=== PATIENT | male | born 1960 | race Two or more races ===

== ENCOUNTER 2019-02-18 21:27 | Inpatient (IN) | payer OTHER ==
[~2019-02-18] VITALS: Ht 193 cm; Wt 160.1 kg
--- NOTE | 2019-02-18 21:40 | NUR ---
PT JAVI FROM [facility] C/O COUGH AND CONGESTION 3 WEEKS WORSENING TODAY, 02 SAT RA ON 84%. PLACED ON 4L NC SATTING 90%. PT ON MONITOR IN BED 1. WILL CONTINUE TO MONITOR.
--- NOTE | 2019-02-18 22:16 | NUR ---
IV INITIATED RAC 18G. LABS DRAWN FROM SITE. DOOR CLAMP OPERATOR AT BEDSIDE FOR COLLECTION. IV INTACT AND PATENT, PLACED ON SALINE LOCK
[2019-02-18 22:20] LABS: BASOPHILS % (AUTO) 0.4 % (0.0-2.0); EOSINOPHILS % (AUTO) 1.1 % (0.0-6.0); HEMATOCRIT 48 % (39-51); HEMOGLOBIN 15.7 g/dL (13.5-17.5); LYMPHOCYTES # (AUTO) 1.4 /CMM (0.8-4.8); LYMPHOCYTES % (AUTO) 11.5 % (20.0-44.0); MEAN CORPUSCULAR HGB CONC 33 g/dl (31.0-36.0); MEAN CORPUSCULAR VOLUME 90 fL (80-96); MONOCYTES # (AUTO) 1.1 /CMM (0.1-1.30); MONOCYTES % (AUTO) 8.9 % (2.0-12.0); NEUTROPHILS # (AUTO) 9.5 /CMM (1.8-8.9); NEUTROPHILS % (AUTO) 78.1 % (43.0-81.0); PLATELET COUNT (AUTO) 207 /CMM (150-450); RED BLOOD CELL COUNT(AUTO) 5.26 MIL/uL (4.5-6.0); WHITE BLOOD COUNT (AUTO) 12.2 K/uL (4.3-11.0)
[2019-02-18 22:28] LABS: CALCIUM, SERUM 8.3 mg/dL (8.5-10.1); CARBON DIOXIDE 36 mmol/L (21-32); CHLORIDE 104 mmol/L (98-107); CREATININE 0.8 mg/dL (0.6-1.3); GLUCOSE 128 mg/dL (74-106); POTASSIUM 4.5 mmol/L (3.5-5.1); SODIUM SERUM 141 mmol/L (136-145); UREA NITROGEN, BLOOD 22 mg/dL (7-18)
[2019-02-18] MEDS ORDERED: methylPREDNISolone SOD SUCC 125 MG/2ML VIAL IV ONE (22:30)
[2019-02-18] MEDS ORDERED: IV NS 0.9% 1,000 ML BAG IV ONE (22:30)
[2019-02-18] MEDS ORDERED: methylPREDNISolone SOD SUCC 125 MG/2ML VIAL ONE (22:32)
[2019-02-18 22:41] LABS: ALANINE AMINOTRANSFERASE 27 U/L (12-78); ALBUMIN 3.1 g/dL (3.4-5.0); ALKALINE PHOSPHATASE 145 U/L (46-116); ASPARTATE AMINOTRANSFERASE 13 U/L (15-37); B-TYPE NATRIURETIC PEPTIDE 2299 PG/ML (0-125); BILIRUBIN,DIRECT 0.2 mg/dL (0.0-0.2); BILIRUBIN,TOTAL 0.6 mg/dL (0.2-1.0); TOTAL PROTEIN, SERUM 6.8 g/dL (6.4-8.2)
--- NOTE | 2019-02-18 23:19 | NUR ---
PAGED EUN ECHEVARRIA
--- NOTE | 2019-02-19 00:05 | NUR ---
URINE COLLECTED AND SENT TO LAB
--- NOTE | 2019-02-19 00:11 | NUR ---
GAVE REPORT TO DOMINGA ESPINOZA FOR NATALIE
[2019-02-19 00:25] LABS: APPEARANCE,URINE Clear (CLEAR); BILIRUBIN,URINE Negative (NEGATIVE); BLOOD, URINE Trace-intact Ery/uL (NEGATIVE); COLOR,URINE Yellow (YELLOW); KETONES,URINE Negative (NEGATIVE); LEUKOCYTE ESTERASE ,URINE Negative (NEGATIVE); NITRITE, URINE Negative (NEGATIVE); PH,URINE 5.5 (5.0-8.0); PROTEIN,URINE 30 mg/dl (NEGATIVE); UGLUCOSE Negative (NEGATIVE)
[2019-02-19 00:50] LABS: BACTERIA,URINE None seen /HPF (None Seen); RBC,URINE 0-2 /HPF (0-2); SQUAMOUS EPITHELIAL CELL,UR Few /HPF (None Seen); WBC,URINE 0-2 /HPF (0-3)
[2019-02-19] MEDS ORDERED: ZOLPIDEM TARTRATE 5 MG TABLET PO PRN (01:00)
[2019-02-19] MEDS ORDERED: HYDROCODONE/APAP 5/325MG 1 EACH TABLET PO PRN (01:00)
[2019-02-19] MEDS ORDERED: MAGNESIUM HYDROXIDE 30 ML UDC PO PRN (01:00)
[2019-02-19] MEDS ORDERED: ALBUTEROL FS 2.5 MG/3 ML VIAL.NEB NEB PRN (01:00)
[2019-02-19] MEDS ORDERED: ONDANSETRON HCL/PF 4 MG/2 ML VIAL IVP PRN (01:00)
[2019-02-19] MEDS ORDERED: MAG HYDROX/AL HYDROX/SIMETH 30 ML UDC PO PRN (01:00)
[2019-02-19] MEDS ORDERED: Z GUARD REMEDY 2 OZ OINT TP PRN (01:00)
[2019-02-19] MEDS ORDERED: IPRATROPIUM NEB FS 0.5 MG/2.5 ML AMPUL.NEB NEB PRN (01:00)
[2019-02-19 01:45] VITALS: BP 160/87
--- NOTE | 2019-02-19 01:50 | NUR ---
TRANSFERRED PT PER ACLS PROTOCOL
--- NOTE | 2019-02-19 02:00 | NUR ---
TELE/RN OPENING NOTES PT RECEIVED FROM ER VIASMITHA. A/OX3. PLACED ON 2L OW VIA NC, SOB ON EXERTION. PLACED ON TELE MONITOR SHOWING A.FIB 116. IV TO RAC PATENT AND INTACT. PT REFUSED TO COMPLETE BELONGINGS LIST ON UNIT, STATED THAT "ER ALREADY DID IT". INFORMED PT THAT WE WANT HIS BELONGINGS ACCOUNTED FOR FROM ER TO MICHEL AND PT STILL REFUSED. ORIENTED PT TO ROOM AND CALL LIGHT. HOB ELEVATED. BILATERAL UPPER SIDE RAILS IN PLACE. SKIN ASSESSMENT DONE, PHOTOS PLACED IN THE CHART. NO NEEDS EXPRESSED AT THIS TIME. WILL CONTINUE TO MONITOR
[2019-02-19] MEDS ORDERED: MORP30TA59 PO (02:15)
[2019-02-19] MEDS ORDERED: DILT180C66 PO (02:15)
[2019-02-19] MEDS ORDERED: NAPR-1009 PO (02:15)
[2019-02-19] MEDS ORDERED: APIX5TAB PO (02:15)
--- NOTE | 2019-02-19 02:26 | NUR ---
TELE/RN NOTES PAGED TALIA NIETO. PT REQUESTING MS CONTIN 15MG FOR BACK PAIN DUE TO MULTIPLE BACK INJURIES AND ARTHRITIC HIP PAIN. WILL INPUT ORDERS.
[2019-02-19] MEDS ORDERED: MORPHINE SULFATE INJ 2 MG/ML DISP.SYRIN IV PRN (02:30)
--- NOTE | 2019-02-19 02:41 | NUR ---
PATIENT FOUND ON ROOM AIR AND OFF CANNULA, OBTAINED LOW SaO2 READING. CURRENTLY GIVING PRN HHN TREATMENT PER PATIENT'S REQUEST. Addendum: 02/19/19 at 0243 by DANIEL FOSTER RT Amended: Links added.
--- NOTE | 2019-02-19 02:45 | NUR ---
RN NOTES PT DOES NOT WANT TO TAKE IV MORPHINE. INFORMED EMILIA SKIDDER RUNNER, STATES HE DOES NOT WANT TO ORDER MS CONTIN OR ANY ADDITIONAL PAIN MEDICATIONS
[2019-02-19 04:30] VITALS: BP 132/96
[2019-02-19 04:34] LABS: BASOPHILS % (AUTO) 0.2 % (0.0-2.0); EOSINOPHILS % (AUTO) 0.6 % (0.0-6.0); HEMATOCRIT 52 % (39-51); HEMOGLOBIN 16.9 g/dL (13.5-17.5); LYMPHOCYTES # (AUTO) 0.6 /CMM (0.8-4.8); LYMPHOCYTES % (AUTO) 4.4 % (20.0-44.0); MEAN CORPUSCULAR HGB CONC 33 g/dl (31.0-36.0); MEAN CORPUSCULAR VOLUME 91 fL (80-96); MONOCYTES # (AUTO) 0.1 /CMM (0.1-1.30); MONOCYTES % (AUTO) 0.6 % (2.0-12.0); NEUTROPHILS % (AUTO) 94.2 % (43.0-81.0); PLATELET COUNT (AUTO) 127 /CMM (150-450); RED BLOOD CELL COUNT(AUTO) 5.68 MIL/uL (4.5-6.0); WHITE BLOOD COUNT (AUTO) 13.8 K/uL (4.3-11.0)
[2019-02-19 04:47] LABS: CALCIUM, SERUM 8.5 mg/dL (8.5-10.1); CREATININE 0.8 mg/dL (0.6-1.3); MAGNESIUM 1.8 mg/dL (1.8-2.4); PHOSPHORUS 3.1 mg/dL (2.5-4.9); POTASSIUM 4.9 mmol/L (3.5-5.1)
[2019-02-19 05:16] LABS: THYROID STIMULATING HORMONE 0.007 uIU/mL (0.358-3.74)
--- NOTE | 2019-02-19 06:25 | NUR ---
TELE/RN CLOSING NOTES PT ASLEEP, RESPONSIVE TO NAME. ON 2L O2 VIA NC, BREATHING EVEN AND UNLABORED. NO SOB OR PAIN AT THIS TIME. HOB ELEVATED. IN NO ACUTE DISTRESS. IV TO RAC PATENT AND INTACT. NO SIGNIFICANT CHANGES OVERNIGHT. ALL NEEDS MET. ON TELE MONITOR SHOWING AFIB 110-120'S. CALLED [facility] FOR COMPLETE LIST OF HOME MEDS. PER STAFF, SHE DOESNT HAVE THE LIST OF MEDS, "PT KNOWS WHAT HE IS TAKING". BED REMAINS IN LOW/LOCKED POSITION WITH CALL LIGHT IN REACH. [address] REFUSED TO HAVE OTHER UPPER SIDE RAIL IN PLACE DESPITE EDUCATION OF SAFETY. INDEPENDENT MOBILITY IN BED. BLE ELEVATED. WILL ENDORSE TO DAY SHIFT RN NATALIE.
--- NOTE | 2019-02-19 07:00 | NUR ---
STAMPING BENCH DIE MAKER OPENING NOTES RECEIVED REPORT FROM SHIRT IRONER NURSE. PATIENT AWAKE, ALERT ON 2L O2 VIA NC, BREATHING EVEN AND UNLABORED. NO SOB OR PAIN AT THIS TIME. HOB ELEVATED. IN NO ACUTE DISTRESS. IV TO RAC PATENT AND INTACT. ON TELE MONITOR SHOWING AFIB 110-120'S. BED IN LOW/LOCKED POSITION WITH CALL LIGHT IN REACH. PATIENT REFUSED TO HAVE SIDE RAIL UP IN PLACE DESPITE EDUCATION OF SAFETY. INDEPENDENT MOBILITY IN BED. USES OLD BOTTLE OF PEANUT TO URINATE DESPITE URINAL AT BEDSIDE. BLE ELEVATED. WILL CONT TO MONITOR PT CLOSELY.
[2019-02-19 08:00] VITALS: BP 122/73
[2019-02-19] MEDS ORDERED: DILT-3 PO (08:03)
[2019-02-19] MEDS ORDERED: MORP15TA7 PO (08:03)
[2019-02-19] MEDS ORDERED: ALBU2.5V38 IH (08:03)
[2019-02-19] MEDS ORDERED: ALBU18HF2 IH (08:03)
[2019-02-19] MEDS ORDERED: FLUT1BLS IH (08:03)
[2019-02-19] MEDS ORDERED: ACET-2605 PO (08:03)
[2019-02-19] MEDS ORDERED: FLUTICASONE 220MCG 1 INHALER IH SCH (09:00)
[2019-02-19] MEDS ORDERED: NAPROXEN 500 MG TABLET PO PRN (10:00)
--- NOTE | 2019-02-19 10:00 | NUR ---
ZIPPER SETTER LOCKSTITCH NOTES PATIENT COMPLAINED ABOUT HIS CARDIAC (LOW FAT, LOW CHOL, 2GMNA) DIET. EDUCATED PATIENT ABOUT THE BENEFITS OF CARDIAC DIET (LOW FAT, LOW CHOL, 2GMNA) AND THE RISKS IF NOT FOLLOWED. PATIENT INSISTED DIET TO BE CHANGED DESPITE EDUCATION GIVEN. WILL LET HOSPITALIST KNOW.
[2019-02-19] MEDS: DILTIAZEM HCL CD 240 MG PO SCH (10:22)
[2019-02-19] MEDS: methylPREDNISolone SOD SUCC 40 MG/ML VIAL IV SCH ×3 (10:23→17:07)
[2019-02-19] MEDS: ALBUTEROL FS 2.5 MG/0.5 ML VIAL.NEB NEB SCH ×4 (10:46→23:04)
[2019-02-19] MEDS: IPRATROPIUM NEB FS 0.5 MG/2.5 ML AMPUL.NEB NEB SCH ×4 (10:46→23:04)
[2019-02-19] MEDS: APIXABAN 5 MG TABLET PO SCH ×2 (10:58→17:07)
--- NOTE | 2019-02-19 10:58 | NUR ---
RT NOTE: ALERT PATIENT REFUSES TO KEEP OXYGEN ON. PATIENT STATES THAT IT GIVES HIM A HEADACHE AND IS AWARE THAT LOW OXYGEN SATURATION LEVELS ARE DANGEROUS BUT REFUSES TO KEEP IT ON.
[2019-02-19 12:00] VITALS: BP 149/80
[2019-02-19] MEDS: LEVOFLOXACIN (500MG) 500 MG TABLET PO SCH (15:18)
[2019-02-19 16:00] VITALS: BP 130/78
--- NOTE | 2019-02-19 17:18 | NUR ---
OFFICE COPY SELECTOR NOTES PATIENT REQUESTING FOR 15MG PO MORPHINE INSTEAD OF 2MG IV MORPHINE. HOSPITALIST MADE AWARE. AWAITING FOR RESPONSE.
[2019-02-19] MEDS: MORPHINE SULFATE IR 15 MG TABLET PO PRN (18:22)
--- NOTE | 2019-02-19 19:00 | NUR ---
GEOLOGY TEACHER CLOSING NOTES PATIENT AWAKE, ALERT AND ORIENTED X3. ON ROOM AIR, NO SOB OR ACUTE DISTRESS NOTED. BREATHING EVEN AND UNLABORED. HOB ELEVATED AT ALL TIMES. IV TO RAC PATENT AND INTACT. ON TELE MONITOR SHOWING AFIB 110S. BED IN LOW/LOCKED POSITION WITH CALL LIGHT IN REACH. PATIENT REFUSED TO HAVE SIDE RAIL UP IN PLACE DESPITE EDUCATION OF SAFETY. INDEPENDENT MOBILITY IN BED. BLE ELEVATED. ALL MD ORDERS ATTENDED. ALL NEEDS MET. ENDORSED TO FITTING ROOM SUPERVISOR NURSE FOR NATALIE.
--- NOTE | 2019-02-19 19:11 | NUR ---
Met with patient, he is alert and oriented. States he resides at [facility] [phone]. He is confined to wheelchair that he use for mobility. He is independent with adl's and owns a commode, walker and wheelchair. He goes to the outpatient therapy at [facility] in [place] [phone]. His pcp is Dr. Marcos Bearden in [facility] [phone]. Patient states he will need 24-48hrs noticed for him to set up his transportation prior discharge. Addendum: 02/19/19 at 3 by VICTORINA RODRIGUEZ RN Amended: Links added.
--- NOTE | 2019-02-19 19:26 | NUR ---
RT NOTE AWAKE AND ALERT PATIENT REFUSES TO WEAR NASAL CANULA. PATIENT STATES THAT IT GIVES HIM A HEADACHE. INFORMED PT THAT LOW O2 SATURATION LEVELS ARE DANGEROUS BUT PT STILL REFUSES TO WEAR NC. RN MAYAFFERY NOTIFIED AND AWARE.
--- NOTE | 2019-02-19 20:08 | NUR ---
POTATO CHIP SORTER INITIAL NOTES RECEIVED PATIENT AWAKE, AOX2-3 ON R/A REFUSES TO WEAR NC REPORTED BY RT, BREATHING EVEN AND UNLABORED. NO SOB OR PAIN AT THIS TIME. HOB ELEVATED. IN NO ACUTE DISTRESS. IV TO RAC PATENT AND INTACT. ON TELE MONITOR SHOWING AFIB 113-120'S. BED IN LOW/LOCKED POSITION WITH CALL LIGHT IN REACH. PATIENT REFUSED TO HAVE SIDE RAIL UP IN PLACE DESPITE EDUCATION OF SAFETY. INDEPENDENT MOBILITY IN BED. USES OLD BOTTLE OF PEANUT TO URINATE DESPITE URINAL AT BEDSIDE. BLE ELEVATED. WILL CONT TO MONITOR PT CLOSELY.
[2019-02-19 20:24] VITALS: BP 132/87
[2019-02-20 00:19] VITALS: BP 140/78
[2019-02-20] MEDS: IPRATROPIUM NEB FS 0.5 MG/2.5 ML AMPUL.NEB NEB SCH ×6 (03:16→22:44)
[2019-02-20] MEDS: ALBUTEROL FS 2.5 MG/0.5 ML VIAL.NEB NEB SCH ×6 (03:16→22:44)
[2019-02-20 04:00] VITALS: BP 120/86
--- NOTE | 2019-02-20 06:30 | NUR ---
PATTERN LEASE INSPECTOR CLOSING NOTES ENDORSED PATIENT AWAKE, AOX2-3 ON R/A REFUSES TO WEAR NC REPORTED BY RT, BREATHING EVEN AND UNLABORED. NO SOB OR PAIN AT THIS TIME. HOB ELEVATED. IN NO ACUTE DISTRESS. IV TO RAC PATENT AND INTACT. ON TELE MONITOR SHOWING AFIB 113-120'S. BED IN LOW/LOCKED POSITION WITH CALL LIGHT IN REACH. PATIENT REFUSED TO HAVE SIDE RAIL UP IN PLACE DESPITE EDUCATION OF SAFETY. INDEPENDENT MOBILITY IN BED. USES OLD BOTTLE OF PEANUT TO URINATE DESPITE URINAL AT BEDSIDE. BLE ELEVATED. WILL CONT TO MONITOR PT CLOSELY.
--- NOTE | 2019-02-20 07:30 | NUR ---
RN OPENING NOTES RECEIVED REPORT FROM WOOD CARVER HAND RN.PATIENT AWAKE, AOX2-3 ON R/A REFUSES TO WEAR NC REPORTED BY RT, BREATHING EVEN AND UNLABORED. NO SOB OR PAIN AT THIS TIME. HOB ELEVATED. IN NO ACUTE DISTRESS. IV TO RAC PATENT AND INTACT. ON TELE MONITOR SHOWING AFIB 110-120'S. BED IS LOW/LOCKED POSITION WITH CALL LIGHT IN REACH. PATIENT REFUSED TO HAVE SIDE RAIL UP IN PLACE DESPITE EDUCATION OF SAFETY. INDEPENDENT MOBILITY IN BED. USES OLD BOTTLE OF PEANUT TO URINATE DESPITE URINAL AT BEDSIDE. BLE ELEVATED. WILL CONT TO MONITOR.
[2019-02-20 08:00] VITALS: BP 125/97
[2019-02-20] MEDS: APIXABAN 5 MG TABLET PO SCH ×2 (08:13→16:34)
[2019-02-20] MEDS: DILTIAZEM HCL CD 240 MG PO SCH (08:13)
[2019-02-20] MEDS: methylPREDNISolone SOD SUCC 40 MG/ML VIAL IV SCH ×3 (08:13→16:34)
[2019-02-20] MEDS: MORPHINE SULFATE IR 15 MG TABLET PO PRN (08:25)
[2019-02-20] MEDS: ACETAMINOPHEN 325 MG TABLET PO PRN (08:25)
[2019-02-20 12:00] VITALS: BP 125/76
[2019-02-20] MEDS: FLUTICASONE/VILANTEROL 1 EACH BLST.W.DEV IH SCH (12:44)
--- NOTE | 2019-02-20 12:57 | NUR ---
PT O2 SATURATION AT 86% ON RA WITH PT RESTING.
[2019-02-20 13:38] LABS: ABG BASE EXCESS 5.3 mmol/L; ABG OXYGEN SATURATION 89.4 % (92.0-98.5); ABG PCO2 54.4 mmHg (35.0-45.0); ABG PH 7.389 (7.350-7.450); ABG PO2 56.2 mmHg (75.0-100.0); AaDO2 28.4 mmHg; COHb 1.1 % (0.5-1.5); MetHb 0.5 % (0.0-1.5); SITE, ABG Right Radial; VENT MODE, BG RA
[2019-02-20] MEDS: LEVOFLOXACIN (500MG) 500 MG TABLET PO SCH (15:15)
--- NOTE | 2019-02-20 15:46 | NUR ---
PT REFUSING BATH. STATES HE WANTS TO BE LEFT ALONE TO REST.
[2019-02-20 16:00] VITALS: BP 118/85
--- NOTE | 2019-02-20 18:55 | NUR ---
RN CLOSING NOTES GAVE REPORT TO CHAIRMAN PRESIDENT AND CHIEF EXECUTIVE OFFICER RN.PATIENT AWAKE, AOX2-3 ON R/A REFUSES TO WEAR NC REPORTED BY RT, BREATHING EVEN AND UNLABORED. NO SOB OR PAIN AT THIS TIME. HOB ELEVATED. IN NO ACUTE DISTRESS. IV TO RAC PATENT AND INTACT. ON TELE MONITOR SHOWING AFIB 110-140'S. BED IS LOW/LOCKED POSITION WITH CALL LIGHT IN REACH. PATIENT REFUSED TO HAVE SIDE RAIL UP IN PLACE DESPITE EDUCATION OF SAFETY. INDEPENDENT MOBILITY IN BED. USES OLD BOTTLE OF PEANUT TO URINATE DESPITE URINAL AT BEDSIDE. BLE ELEVATED. WILL ENDORSE CONTINUITY OF CARE TO CHAIRMAN PRESIDENT AND CHIEF EXECUTIVE OFFICER RN.
--- NOTE | 2019-02-20 19:52 | NUR ---
YARD ENGINEER INITIAL NOTES RECEIVED PATIENT AWAKE, AOX2-3 ON. NO SOB OR PAIN AT THIS TIME. HOB ELEVATED. IN NO ACUTE DISTRESS. IV TO RAC PATENT AND INTACT. ON TELE MONITOR SHOWING AFIB 113-120'S. BED IN LOW/LOCKED POSITION WITH CALL LIGHT IN REACH. INDEPENDENT MOBILITY IN BED. USES OLD BOTTLE OF PEANUT TO URINATE DESPITE URINAL AT BEDSIDE. BLE ELEVATED. WILL CONT TO MONITOR PT CLOSELY.COMPLAINTS OF SINUS HEADACHE, WILL CONTIUE TO MONITER AND ADMINSTER ALL MEDICATIONS THROUGHOUT SHIFT ORDERED.
[2019-02-20 20:00] VITALS: BP 145/89
[2019-02-21] VITALS (7 sets, daily range): BP systolic 127–159; BP diastolic 75–106
[2019-02-21] MEDS: ALBUTEROL FS 2.5 MG/0.5 ML VIAL.NEB NEB SCH ×5 (04:19→19:32)
[2019-02-21] MEDS: IPRATROPIUM NEB FS 0.5 MG/2.5 ML AMPUL.NEB NEB SCH ×5 (04:19→19:32)
[2019-02-21] MEDS: MORPHINE SULFATE IR 15 MG TABLET PO PRN ×2 (05:10→20:59)
[2019-02-21] MEDS: ACETAMINOPHEN 325 MG TABLET PO PRN ×2 (05:13→20:59)
[2019-02-21 06:42] LABS: BASOPHILS % (AUTO) 0.1 % (0.0-2.0); HEMATOCRIT 51 % (39-51); HEMOGLOBIN 16.8 g/dL (13.5-17.5); LYMPHOCYTES # (AUTO) 0.8 /CMM (0.8-4.8); LYMPHOCYTES % (AUTO) 5.3 % (20.0-44.0); MEAN CORPUSCULAR HGB CONC 33 g/dl (31.0-36.0); MEAN CORPUSCULAR VOLUME 89 fL (80-96); MONOCYTES # (AUTO) 0.7 /CMM (0.1-1.30); MONOCYTES % (AUTO) 4.5 % (2.0-12.0); NEUTROPHILS # (AUTO) 14.3 /CMM (1.8-8.9); NEUTROPHILS % (AUTO) 90.1 % (43.0-81.0); PLATELET COUNT (AUTO) 221 /CMM (150-450); RED BLOOD CELL COUNT(AUTO) 5.67 MIL/uL (4.5-6.0); WHITE BLOOD COUNT (AUTO) 15.9 K/uL (4.3-11.0)
--- NOTE | 2019-02-21 06:59 | NUR ---
WOOD PATTERN MAKER CLOSING NOTES RECEIVED PATIENT AWAKE, AOX2-3 ON. NO SOB OR PAIN AT THIS TIME. HOB ELEVATED. IN NO ACUTE DISTRESS. IV TO RAC PATENT AND INTACT. ON TELE MONITOR SHOWING AFIB 113-120'S. BED IN LOW/LOCKED POSITION WITH CALL LIGHT IN REACH. INDEPENDENT MOBILITY IN BED. USES OLD BOTTLE OF PEANUT TO URINATE DESPITE URINAL AT BEDSIDE. WILL CONT TO MONITOR PT CLOSELY.COMPLAINTS OF SINUS HEADACHE, ALL MEDICATIONS GIVEN THROUGHOUT SHIFT. PT REFUSED NASAL CANULA- SATTING WELL ON ROOM AIR.
[2019-02-21 07:16] LABS: CALCIUM, SERUM 8.7 mg/dL (8.5-10.1); CREATININE 0.8 mg/dL (0.6-1.3); POTASSIUM 4.2 mmol/L (3.5-5.1)
--- NOTE | 2019-02-21 07:30 | NUR ---
FINANCIAL ANALYST INITIAL NOTES RECEIVED PT IN BED, AWAKE A/OX4. ON RA NO S/SX RESP DISTRESS. ON MONITOR UNCONTROLLED AFIB HR 102. IV ON RAC C/D/P/I. PT HAS NO C/O PAIN AT THIS TIME. CALL LIGHT IN REACH. BED IN LOCKED/LOWEST POSITION. CALL LIGHT IN REACH. WILL CONT TO MONITOR.
[2019-02-21] MEDS: FLUTICASONE/VILANTEROL 1 EACH BLST.W.DEV IH SCH (09:09)
[2019-02-21] MEDS: DILTIAZEM HCL CD 240 MG PO SCH (09:09)
[2019-02-21] MEDS: methylPREDNISolone SOD SUCC 40 MG/ML VIAL IV SCH ×3 (09:09→18:00)
[2019-02-21] MEDS: APIXABAN 5 MG TABLET PO SCH ×2 (09:10→17:59)
[2019-02-21] MEDS ORDERED: LEVO500T2 PO (11:48)
--- NOTE | 2019-02-21 12:06 | NUR ---
DESKTOP SUPPORT ENGINEER NOTES PT SEEN BY TALIA PIERRE. PER NUNO MENDOZA FOR REGULAR DIET. WAITING ON OXYGEN BEFORE PT IS DISCHARGED. WILL CONT TO MONITOR.
[2019-02-21] MEDS ORDERED: LEVO500T75 PO (12:19)
[2019-02-21] MEDS: LEVOFLOXACIN (500MG) 500 MG TABLET PO SCH (15:17)
--- NOTE | 2019-02-21 19:01 | NUR ---
X RAY SERVICE TECHNICIAN CLOSING NOTES PT RESTING IN BED, STABLE AWAITING DISCHARGE/ PICKUP AT 1999. ALL DISCHARGE INSTRUCTIONS/PRESCRIPTION GIVEN. PHOTOS TAKEN AND IN CHART. WILL ENDORSE IV REMOVAL AND REPORT TO ASSISTED LIVING TO PM NURSE. ALL NEEDS ATTENDED.
--- NOTE | 2019-02-21 20:00 | NUR ---
WEIGHT ENGINEER NOTES RECEIVED PT RESTING IN BED, STABLE AWAITING DISCHARGE/ PICKUP AT 1999. ALL DISCHARGE INSTRUCTIONS/PRESCRIPTION ARE READY, PHOTOS TAKEN AND IN CHART. BELONGING LIST CHECKED WITH THE PT. NO SOB, NO CHEST PAIN NOTED AT THIS TIME. PT COMPLAINT OF LOW BACK PAIN 04/22 AND ASKED FOR MEDICATION. PT IS ON RA, REFUSING NC WITH SPO2 OF 90%. IV LINE IS PATIENT AND INTACT. ON DISK OPERATOR CALLED [facility] ASSIST[facility] LIV[facility] AND GAVE REPORT TO JONNATHAN RN. WILL CONTINUE TO MONITOR PT.
--- NOTE | 2019-02-21 22:15 | NUR ---
RN NOTES PATIENT LEFT THE [facility] TO [facility] ASSISTING LIVING VIA [facility]. IV LINE, HIM SPECIALIST AND WRIST BAND HAS BEEN REMOVED BY ME. TEACHING PROVIDED. BELONGING WERE SENT WITH THE PATIENT.
== END 2019-02-21 22:15 | DRG 140 ==
LOC: ER 21:33 → TELE1 02-19 01:01
PROVIDERS: ADMIT Hospitalist; ATTEND Nurse Practitioner Acute Care
DX: J44.1 Chronic obstructive pulmonary disease with (acute) exacerbation (principal); I50.33 Acute on chronic diastolic (congestive) heart failure; D68.59 Other primary thrombophilia; D69.6 Thrombocytopenia, unspecified; E44.1 Mild protein-calorie malnutrition; E66.01 Morbid (severe) obesity due to excess calories; J20.8 Acute bronchitis due to other specified organisms; E87.2 Acidosis; I48.91 Unspecified atrial fibrillation; I11.0 Hypertensive heart disease with heart failure; F17.200 Nicotine dependence, unspecified, uncomplicated; G47.33 Obstructive sleep apnea (adult) (pediatric); Z91.11 Patient's noncompliance with dietary regimen; Z68.41 Body mass index [BMI] 40.0-44.9, adult; R09.02 Hypoxemia
CPT/HCPCS: 36415; 36600; 71045-TC; 80048-TC; 80061-TC; 80076-TC; 81000-TC; 82803-TC; 83605-TC; 83735-TC; 83880; 84100-TC; 84443-TC; 84484-TC; 85025-TC; 87040-TC; 87070-TC; 87081-TC; 87400; 97116-TC; 97530-TC; G0378; J2920; J2930; J7030